=== PATIENT | female | born 1955 | race Two or more races ===

== ENCOUNTER 2024-01-04 10:14 | Emergency (ER) | payer OTHER ==
[~2024-01-04] VITALS: Ht 152.4 cm; Wt 57.6 kg
[2024-01-04] MEDS ORDERED: COZAAR100 MG PO (10:32)
[2024-01-04] MEDS ORDERED: LIDOCAINE HCL 1% 10ML VIAL PERCUT ONE (10:45)
[2024-01-04] MEDS ORDERED: KETOROLAC TROMETHAMINE 60 MG VIAL IM ONE ×2 (10:45→11:05)
[2024-01-04] MEDS ORDERED: POVIDONE-IODINE 118 ML BOTT TOP ONE (10:51)
[2024-01-04 13:42] LABS: HEMATOCRIT 38.3 % (36.0-45.00); HEMOGLOBIN 12.7 g/dL (12.0-15.00); MEAN CELL VOLUME 93.5 fL (80.00-100.00); MEAN CORPUSCULAR HGB CONC 33.1 g/dl (32.0-36.0); PLATELET COUNT 183 K/uL (150-450); RED BLOOD COUNT 4.09 M/uL (4.00-6.00)
[2024-01-04] MEDS ORDERED: KETO10TA2 PO (13:56)
[2024-01-04 14:03] LABS: INR 1.03; PARTIAL THROMBOPLASTIN TIME 27.6 SECONDS (22.0-34.0); PROTHROMBIN TIME 11.2 SECONDS (9.0-11.5)
[2024-01-04 14:10] LABS: ALBUMIN 4.2 gm/dL (3.4-5.0); BILIRUBIN TOTAL 0.59 mg/dL (0.3-1.2); CALCIUM 10.1 mg/dL (8.5-10.1); CREATININE SERUM 0.78 mg/dL (0.55-1.02); GFR 73.23; GLOBULINA 3.7 G/DL (2.4-3.5); POTASSIUM 4.03 mEq/L (3.5-5.1); TOTAL PROTEIN 7.9 gm/dL (6.4-8.2)
[2024-01-04 15:24] LABS: URINE APPEARANCE Cloudy; URINE BILIRRUBIN Negative (NEGATIVE); URINE BLOOD Negative; URINE COLOR Yellow; URINE GLUCOSE Negative (NEGATIVE); URINE KETONE Trace (NEGATIVE); URINE LEUKOCYTE Moderate; URINE NITRATE Negative; URINE PROTEIN Negative (NEGATIVE)
[2024-01-04 15:28] LABS: URINE BACTERIA 83.1 uL (0.0-1933); URINE EPITHELIAL CELLS 7.5 uL (0.0-38.8); URINE RBC 208.4 uL (0.0-20.8); URINE WBC 53.8 uL (0.0-23.2)
[2024-01-04 16:49] LABS: URINE CRYSTALS NEGATIVE /HPF
[2024-01-04 16:50] LABS: URINE YEAST NEGATIVE /hpf
== END 2024-01-04 14:53 | disposition home or self-care (01) ==
LOC: ER 10:16
PROVIDERS: General Practice
DX: S62.101A Fracture of unspecified carpal bone, right wrist, initial encounter for closed fracture (principal); S01.81XA Laceration without foreign body of other part of head, initial encounter; W18.30XA Fall on same level, unspecified, initial encounter; W19.XXXA Unspecified fall, initial encounter; Y93.89 Activity, other specified; Y92.89 Other specified places as the place of occurrence of the external cause; Y99.8 Other external cause status; M25.529 Pain in unspecified elbow; Z20.822 Contact with and (suspected) exposure to COVID-19; I10 Essential (primary) hypertension
CPT/HCPCS: 12013; 36415; 70450; 71045; 72125; 72170; 73070; 73100; 93005; 96372; 99284; J1885

== ENCOUNTER 2024-01-07 08:17 | Day surgery (SDC) | payer OTHER ==
[~2024-01-07 08:17] MED LIST: COZAAR100 MG PO; KETO10TA2 PO
[2024-01-07] MEDS ORDERED: CEFAZOLIN SODIUM 1,000 MG VIAL ONE (17:05)
[2024-01-07] MEDS ORDERED: POVIDONE-IODINE 118 ML BOTT TOP ONE ×2 (20:15→20:30)
[2024-01-07] MEDS ORDERED: CEFADROXIL500 MG PO (20:39)
[2024-01-07] MEDS ORDERED: PERCOCET 5-3251 EACH PO (20:39)
[2024-01-07] MEDS ORDERED: ALEVE220 M1 PO (20:39)
[2024-01-07] MEDS ORDERED: MORPHINE SULFATE 4 MG/ML VIAL IV ONE ×2 (21:20→21:50)
[2024-01-07] MEDS ORDERED: ENALAPRILAT DIHYDRATE 1.25 MG/ML VIAL IV ONE ×2 (22:38→22:40)
== END 2024-01-08 00:15 | disposition home or self-care (01) ==
LOC: CIR.AMB 08:17
PROVIDERS: ATTEND Orthopaedic Surgery
DX: S52.531A Colles' fracture of right radius, initial encounter for closed fracture (principal); S52.611A Displaced fracture of right ulna styloid process, initial encounter for closed fracture
CPT/HCPCS: 25609; 20902; 25652; L8699